=== PATIENT | male | born 1975 | race Caucasian/White ===

== ENCOUNTER 2022-04-28 05:57 | Emergency (ER) | payer BC, OTHER ==
[2022-04-28 06:14] VITALS: BP 97/60; PULSE 97
[2022-04-28] MEDS ORDERED: Diphtheria,Pertussis(Acell),Tetanus Vaccine 0.5 ML Syringe IM ONE (06:35)
== END 2022-04-28 06:55 | disposition home or self-care (01) ==
LOC: FB.ED 05:57
DX: S62.632A Displaced fracture of distal phalanx of right middle finger, initial encounter for closed fracture (principal); Z23 Encounter for immunization; W31.89XA Contact with other specified machinery, initial encounter
CPT/HCPCS: 29130; 73140-F7; 90471; 90715; 99283; 99283-25